=== PATIENT | male | born 1960 | race Caucasian/White ===

== ENCOUNTER 2018-02-28 02:17 | Emergency (ER) | payer OTHER ==
[2018-02-28] MEDS ORDERED: IBUPROFEN 400 MG TAB ONE (02:43)
[2018-02-28] MEDS ORDERED: NA CHLORIDE 0.9% 1,000 ML ONE (03:12)
[2018-02-28] MEDS ORDERED: DEXAMETHASONE 10 MG/ML VIAL ONE (03:12)
[2018-02-28 03:41] LABS: Potassium 3.3 mEq/L (3.6-5.0)
[2018-02-28 03:44] LABS: Albumin 3.8 g/dL (3.2-5.5); Bilirubin Total 0.5 mg/dL (0.3-1.2); Protein, Total 7.5 g/dL (6.0-8.3)
--- NOTE | 2018-02-28 04:21 | EDPHYS ---
Physician Documentation [facility] Name: Moris Neal Age: 57 yrs Sex: Male : 1960 Arrival Date: 02/28/2018 Time: 02:21 Bed 6 Private MD: Malinda Peterson C ED Physician Zack Becerra HPI: 02/28 04:22 This 57 yrs old Male presents to ER via Ambulatory with complaints of Arm ps1 Pain. 04:22 The complaints affect the left arm. Pain onset was 2 days ago. States that it is ps1 non-traumatic. Hx of chronic pain. Sees for back pain and post surgical pain. Hx of drug abuse on oxycontin and fentanyl but has been clean for a year. additionally states that he has pain in his armpit and worse with deep breathing. No remitting factors. . Historical: - Allergies: 02:37 No Known Allergies; bb - Home Meds: 02:37 Depakote Oral [Active]; Seroquel Oral [Active]; Ambien Oral [Active]; unknown psych med bb [Active]; - PMHx: 02:37 Depression; Hypertension; bb - PSHx: 02:37 back surgery; Cholecystectomy; bb - Immunization history:: Adult Immunizations up to date. - Social history:: Smoking status: Patient uses tobacco products, smokes one pack cigarettes per day. Patient uses alcohol, but reports only rare drinking. Patient/guardian denies using street drugs. - Ebola Screening: : No symptoms or risks identified at this time. ROS: 04:22 Constitutional: Negative for fever, chills, and weight loss, Eyes: Negative for injury, ps1 pain, redness, and discharge, ENT: Negative for injury, pain, and discharge, Cardiovascular: Negative for chest pain, palpitations, and edema, Respiratory: Negative for shortness of breath, cough, wheezing, and pleuritic chest pain, Abdomen/GI: Negative for abdominal pain, nausea, vomiting, diarrhea, and constipation, Back: Negative for injury and pain. 04:22 MS/extremity: Positive for pain, of the left arm. Exam: 04:22 Constitutional: This is a well developed, well nourished patient who is awake, alert, ps1 and in no acute distress. Head/Face: Normocephalic, atraumatic. Eyes: Pupils equal round and reactive to light, extra-ocular motions intact. Lids and lashes normal. Conjunctiva and sclera are non-icteric and not injected. Chest/axilla: Normal chest wall appearance and motion. Nontender with no deformity. No lesions are appreciated. Cardiovascular: Regular rate and rhythm. No gallops, murmurs, or rubs. Normal PMI, no JVD. No pulse deficits. Respiratory: Lungs have equal breath sounds bilaterally, clear to auscultation and percussion. No rales, rhonchi or wheezes noted. No increased work of breathing, no retractions or nasal flaring. Abdomen/GI: Soft, non-tender, with normal bowel sounds. No distension or tympany. No guarding or rebound. No evidence of tenderness throughout. Skin: Warm, dry with normal turgor. Normal color with no rashes, no lesions, and no evidence of cellulitis. MS/ Extremity: Pulses equal, no cyanosis. Neurovascular intact. Full, normal range of motion. Neuro: Awake and alert, GCS 15, oriented to person, place, time, and situation. Cranial nerves II-XII grossly intact. Sensory grossly intact. Vital Signs: 02:37 BP 132 / 91; Pulse 115; Resp 20 S; Temp 99.1; Pulse Ox 96% on R/A; Weight 113.4 kg (R); bb Height 5 ft. 10 in. (177.80 cm) (R); Pain 7/10; 04:10 BP 119 / 75; Pulse 85; Resp 18; Pulse Ox 96% on R/A; ea 06:56 BP 120 / 68; Pulse 78; Resp 18; Pulse Ox 99% ; Pain 3/10; ea 02:37 Body Mass Index 35.87 (113.40 kg, 177.80 cm) bb MDM: 02:38 Patient medically screened. ps1 06:02 Data reviewed: vital signs, nurses notes, lab test result(s), EKG. ps1 02/28 03:08 Order name: CBC with Diff; Complete Time: 05:52 ps1 02/28 03:08 Order name: CMP; Complete Time: 03:49 ps1 02/28 02:35 Order name: CXR XRAY ps1 02/28 03:08 Order name: D-Dimer; Complete Time: 04:02 ps1 02/28 03:08 Order name: Troponin (emerg Dept Use Only); Complete Time: 03:52 ps1 02/28 04:26 Order name: EKG - Nurse/Tech; Complete Time: 05:31 ps1 EC:28 Rate is 82 beats/min. Rhythm is regular. QRS [place] is Normal. HI interval is normal. QRS ps1 interval is prolonged. QT interval is normal. No Q waves. T waves are Normal. No ST changes noted. Clinical impression: nsr with IVCD. . Interpreted by me. Administered Medications: 02:42 Drug: Motrin 800 mg Route: PO; ea 06:58 Follow up: Response: No adverse reaction ea 03:18 Drug: Decadron - Dexamethasone 10 mg Route: IVP; Site: right antecubital; mg2 04:00 Follow up: Response: No adverse reaction; Pain is decreased ea 03:19 Drug: NS 0.9% 1000 ml Route: IV; Rate: 1 bolus; Site: right antecubital; mg2 06:57 Follow up: Response: No adverse reaction; IV Status: Completed infusion ea Disposition: 02/28/18 04:21 Discharged to Home. Impression: Pain in left shoulder. - Condition is Stable. - Discharge Instructions: Arthralgia. - Prescriptions for Medrol (Robbie) 4 mg Oral Tablets, Dose Pack - take 1 tablet by ORAL route as directed - follow package instructions; 1 packet. - Medication Reconciliation Form, Thank You Letter, Antibiotic Education, Prescription Opioid Use form. - Follow up: Malinda Peterson MD; When: As needed; Reason: Recheck today's complaints, Continuance of care, Re-evaluation by your physician. Follow up: Emergency Department; When: As needed; Reason: Fever > 102 F, Trouble breathing, Worsening of condition. - Problem is an ongoing problem. - Symptoms have improved. Signatures: Dispatcher [employer] EDMS Joycelyn Kuhn RN RN bb Hannah White RN RN ea Singer, Phillip, MD MD ps1 Chirag Sanches RN RN mg2 Corrections: (The following items were deleted from the chart) 06:58 04:21 02/28/2018 04:21 Discharged to Home. Impression: Pain in left shoulder. Condition ea is Stable. Forms are Medication Reconciliation Form, Thank You Letter, Antibiotic Education, Prescription Opioid Use. Follow up: Malinda Peterson; When: As needed; Reason: Recheck today's complaints, Continuance of care, Re-evaluation by your physician. Follow up: Emergency Department; When: As needed; Reason: Fever > 102 F, Trouble breathing, Worsening of condition. Problem is an ongoing problem. Symptoms have improved. ps1
--- NOTE | 2018-02-28 04:21 | ER ---
Nurse's Notes [facility] Name: Moris Neal Age: 57 yrs Sex: Male : 1960 Arrival Date: 02/28/2018 Time: 02:21 Bed 6 Private MD: Malinda Peterson C Diagnosis: Pain in left shoulder Presentation: 02/28 02:34 Presenting complaint: Patient states: he is having pain in his left arm axillary area bb also back pain pt states he thinks he has pleurisy and feels like he could "squeeze under his arm and fluid would come out". Transition of care: patient was not received from another setting of care. Onset of symptoms was February 26, 2018. Risk Assessment: Do you want to hurt yourself or someone else? Patient reports no desire to harm self or others. Initial Sepsis Screen: Does the patient meet any 2 criteria? No. Patient's initial sepsis screen is negative. Does the patient have a suspected source of infection? No. Patient's initial sepsis screen is negative. Care prior to arrival: None. 02:34 Method Of Arrival: Ambulatory bb 02:34 Acuity: BIN 3 bb Historical: - Allergies: 02:37 No Known Allergies; bb - Home Meds: 02:37 Depakote Oral [Active]; Seroquel Oral [Active]; Ambien Oral [Active]; unknown psych med bb [Active]; - PMHx: 02:37 Depression; Hypertension; bb - PSHx: 02:37 back surgery; Cholecystectomy; bb - Immunization history:: Adult Immunizations up to date. - Social history:: Smoking status: Patient uses tobacco products, smokes one pack cigarettes per day. Patient uses alcohol, but reports only rare drinking. Patient/guardian denies using street drugs. - Ebola Screening: : No symptoms or risks identified at this time. Screenin:54 Abuse screen: Denies threats or abuse. Nutritional screening: No deficits noted. ea Tuberculosis screening: No symptoms or risk factors identified. Fall Risk None identified. Assessment: 02:52 General: Appears in no apparent distress. Behavior is calm, cooperative, appropriate ea for age. Pain: Complains of pain in left arm Pain currently is 9 out of 10 on a pain scale. Quality of pain is described as aching. Neuro: Level of Consciousness is awake, alert, obeys commands, Oriented to person, place, time, situation. Cardiovascular: Patient's skin is warm and dry. Respiratory: Airway is patent Respiratory effort is even, unlabored, Respiratory pattern is regular, symmetrical. GI: No signs and/or symptoms were reported involving the gastrointestinal system. : No signs and/or symptoms were reported regarding the genitourinary system. EENT: No signs and/or symptoms were reported regarding the EENT system. Derm: Skin is pink, warm \\T\\ dry. Musculoskeletal: Reports pain in left arm. 03:30 Reassessment: Patient and/or family updated on plan of care and expected duration. Pain ea level reassessed. Patient is alert, oriented x 3, equal unlabored respirations, skin warm/dry/pink. 04:03 Reassessment: Patient and/or family updated on plan of care and expected duration. Pain ea level reassessed. Patient is alert, oriented x 3, equal unlabored respirations, skin warm/dry/pink. 06:53 Reassessment: Patient and/or family updated on plan of care and expected duration. Pain ea level reassessed. Patient is alert, oriented x 3, equal unlabored respirations, skin warm/dry/pink. Discharge instructions given to patient, verbalized the understanding of instruction. Vital Signs: 02:37 BP 132 / 91; Pulse 115; Resp 20 S; Temp 99.1; Pulse Ox 96% on R/A; Weight 113.4 kg (R); bb Height 5 ft. 10 in. (177.80 cm) (R); Pain 7/10; 04:10 BP 119 / 75; Pulse 85; Resp 18; Pulse Ox 96% on R/A; ea 06:56 BP 120 / 68; Pulse 78; Resp 18; Pulse Ox 99% ; Pain 3/10; ea 02:37 Body Mass Index 35.87 (113.40 kg, 177.80 cm) bb ED Course: 02:21 Patient arrived in ED. es 02:21 Malinda Peterson MD is Private Physician. es 02:24 Hannah White, LINCOLN is Primary Nurse. ea 02:26 Zack Becerra MD is Attending Physician. ps1 02:36 Triage completed. bb 02:37 Arm band placed on Patient placed in an exam room, on a stretcher, on pulse oximetry. bb 02:52 X-ray completed. Portable x-ray completed in exam room. Patient tolerated procedure kw well. 02:52 Patient has correct armband on for positive identification. Bed in low position. Call ea light in reach. 02:54 CXR XRAY In Process Unspecified. EDMS 03:19 Inserted saline lock: 22 gauge in right antecubital area, using aseptic technique. mg2 Blood collected. by LINCOLN Young. 04:20 Malinda Peterson MD is Referral Physician. ps1 05:31 EKG done, by ED staff. cc 06:54 No provider procedures requiring assistance completed. IV discontinued, intact, ea bleeding controlled, No redness/swelling at site. Pressure dressing applied. Administered Medications: 02:42 Drug: Motrin 800 mg Route: PO; ea 06:58 Follow up: Response: No adverse reaction ea 03:18 Drug: Decadron - Dexamethasone 10 mg Route: IVP; Site: right antecubital; mg2 04:00 Follow up: Response: No adverse reaction; Pain is decreased ea 03:19 Drug: NS 0.9% 1000 ml Route: IV; Rate: 1 bolus; Site: right antecubital; mg2 06:57 Follow up: Response: No adverse reaction; IV Status: Completed infusion ea Outcome: 04:21 Discharge ordered by . ps1 06:54 Discharged to home ambulatory. ea 06:54 Condition: good 06:54 Discharge instructions given to patient, Instructed on discharge instructions, follow up and referral plans. medication usage, Demonstrated understanding of instructions, follow-up care, medications. 06:58 Patient left the ED. ea Signatures: Dispatcher [employer] EDCO Leda Brown Brenda, RN RN bb Whitley, Kimberlee kw Christian, Chelsea Hannah White RN RN ea Singer, Phillip, MD MD ps1 Chirag Sanches RN RN mg2 Corrections: (The following items were deleted from the chart) 02:41 02:37 BP 132 / 91; Pulse 120bpm; Resp 20bpm; Spontaneous; Pulse Ox 96% RA; Temp 99.1F; bb 113.4 kg Reported; Height 5 ft. 10 in. Reported; BMI: 35.8; Pain 7/10; bb
[2018-02-28 04:24] LABS: Absolute Monocytes 1.4 K/uL (0.1-1.3); Absolute Neutrophil 9.7 K/uL (1.8-8.0); Basophils % 0.8 % (0-1.3); Eosinophils % 0.3 % (0-4.4); Hematocrit 45.6 % (39.6-49.0); Lymphocytes % 15.2 % (15.3-44.8); MCH 30.2 pg (27.0-35.0); MCV 87.4 fL (80-100); MPV 8.2 fL (7.6-11.3); Monocytes % 10.5 % (3.3-12.3); RBC Red Blood Cell Count 5.21 M/uL (4.33-5.43)
--- NOTE | 2018-02-28 07:36 | EKG ---
Test Date: 2018-02-28 Test Time: 05:28:47 Pharmacy Intake Technician: LAUREANO MEASUREMENT RESULTS: Intervals: Rate: 82 AR: 218 QRSD: 122 QT: 378 QTc: 441 [place]: P: 38 AR: 218 QRS: -11 T: 32 INTERPRETIVE STATEMENTS: Sinus rhythm with 1st degree AV block Borderline ECG Compared to ECG 11/10/2017 22:11:44 First degree AV block now present Electronically Signed On 02-28-18 07:35:35 CDT by Dario Montero
--- NOTE | 2018-02-28 07:59 | RAD REPORT ---
EXAM DESCRIPTION: Viri Single View02/28/2018 2:53 am CLINICAL HISTORY: Chest pain COMPARISON: October 2017 FINDINGS: The lungs appear clear of acute infiltrate. The heart is normal size IMPRESSION: No acute abnormalities displayed
== END 2018-02-28 06:58 | disposition home or self-care (01) ==
LOC: ER 02:17
DX: M25.512 Pain in left shoulder (principal); F32.9 Major depressive disorder, single episode, unspecified; I10 Essential (primary) hypertension; F17.210 Nicotine dependence, cigarettes, uncomplicated
CPT/HCPCS: 36415; 71045; 80053; 84484; 85025; 85379; 93005; 96361; 96374; 99284; J1100; J7030

== ENCOUNTER 2018-05-10 04:38 | Emergency (ER) | payer OTHER ==
[2018-05-10] MEDS ORDERED: TETRACAINE HCL 0.5% 2ML OPTH ONE (04:53)
[2018-05-10] MEDS ORDERED: FLUORESCEIN SODIUM 0.6 MG/WRAP ONE (04:53)
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
[2018-05-10] MEDS ORDERED: TETANUS & DIPHTHERIA TOX,ADULT 0.5 ML VIAL ONE (05:10)
[2018-05-10] MEDS ORDERED: NEO/BAC/POLY/HC OPTH OINT ONE (05:19)
[2018-05-10] MEDS ORDERED: NEO/POLY/DEX OPTH 3.5 GM TUBE ONE (05:22)
== END 2018-05-10 05:33 | disposition home or self-care (01) ==
LOC: ER 04:38
DX: S05.32XA Ocular laceration without prolapse or loss of intraocular tissue, left eye, initial encounter (principal); Y08.89XA Assault by other specified means, initial encounter; Y93.9 Activity, unspecified; Y92.9 Unspecified place or not applicable; Z23 Encounter for immunization; I10 Essential (primary) hypertension; F32.9 Major depressive disorder, single episode, unspecified; F17.210 Nicotine dependence, cigarettes, uncomplicated
CPT/HCPCS: 90714; 99284

== ENCOUNTER 2019-06-19 13:28 | Emergency (ER) | payer OTHER ==
--- NOTE | 2019-06-19 14:38 | RAD REPORT ---
EXAM DESCRIPTION: CT - Stone Protocol - 06/19/2019 2:27 pm CLINICAL HISTORY: Flank pain. low back pain COMPARISON: Abdomen Pelvis W Contrast dated 11/17/2016 TECHNIQUE: Axial images were obtained without oral or IV contrast. Lack of contrast limits solid org an and vascular assessment. The [id number] spans the entirety of the system partially obscuring uppermost abdomen and lung bases. Coronal reformatted images were obtained and reviewed. All CT scans are performed using dose optimization technique as appropriate and may include automated exposure control or mA/KV adjustment according to patient size. FINDINGS: Linear atelectasis is present in the left lung base with a mildly elevated left hemidiaphr agm. Imaged portions of the liver and spleen show no suspicious findings on non-contrast imaging.Mild pneu mobilia. The pancreas and adrenal glands are normal. No pathologic lymphadenopathy in the abdomen or pelvis. 11 mm stone is present in the inferior calyx of the left kidney with a few smaller adjacent caliceal calculi present. No stone is present in the ureter or bladder. No right-sided urinary tract stones se en. No bowel obstruction, free air, free fluid or abscess. Normal appendix noted.Moderate stool is presen t in the colon. No significant bony abnormality. IMPRESSION: Left nephrolithiasis is present without hydronephrosis.
[2019-06-19] MEDS ORDERED: FENTANYL CITR 100 MCG/2 ML ONE (15:00)
[2019-06-19 15:30] LABS: ALT/SGPT 11 U/L (12-78); AST/SGOT 5 U/L (15-37); Albumin 3.3 g/dL (3.4-5.0); Alkaline Phosphatase 54 U/L (45-117); BUN Blood Urea Nitrogen 17 mg/dL (7-18); Bicarbonate 28 mmol/L (21-32); Bilirubin Direct < 0.1 mg/dL (0-0.2); Bilirubin Total 0.2 mg/dL (0.2-1.0); Glucose Level 163 mg/dL (74-106); Lipase 83 U/L (73-393); Potassium 4.1 mmol/L (3.5-5.1); Protein, Total 7.2 g/dL (6.4-8.2); Sodium Level 139 mmol/L (136-145)
[2019-06-19 15:33] LABS: Basophils % 1.1 % (0-1.3); Hematocrit 46.9 % (39.6-49.0); MPV 8.8 fL (7.6-11.3)
[2019-06-19] MEDS ORDERED: NA CHLORIDE 0.9% 100 ML IV ONE (17:05)
[2019-06-19] MEDS ORDERED: HYDROCODONE/APAP 10/325 TAB ONE (17:05)
[2019-06-19] MEDS ORDERED: CEFTRIAXONE/SWI 1gm 1 GM/10 ML SYR ONE (17:05)
--- NOTE | 2019-06-19 17:16 | ER ---
Nurse's Notes [facility] Name: Moris Neal Age: 58 yrs Sex: Male : 1960 Arrival Date: 06/19/2019 Time: 13:32 Bed 18 Private MD: Malinda Peterson C Diagnosis: Low back pain;Urinary tract infection, site not specified;Calculus of kidney-left Presentation: 06/19 13:35 Presenting complaint: Patient states: my back is very unhappy, i have a terrible back, tw2 compression in discs, something is tapping into my lumbar area, it maybe my kidney stone bothering me as well. Transition of care: patient was not received from another setting of care. Onset of symptoms was June 19, 2019. Risk Assessment: Do you want to hurt yourself or someone else? Patient reports no desire to harm self or others. Initial Sepsis Screen: Does the patient meet any 2 criteria? No. Patient's initial sepsis screen is negative. Does the patient have a suspected source of infection? No. Patient's initial sepsis screen is negative. Care prior to arrival: None. 13:35 Method Of Arrival: Ambulatory tw2 13:35 Acuity: BIN 3 tw2 Triage Assessment: 13:38 General: Appears uncomfortable, Behavior is calm, cooperative, appropriate for age, tw2 Smells of cigarette smoke. Pain: Complains of pain in lumbar area. Musculoskeletal: Range of motion: intact in all extremities. Historical: - Allergies: 13:37 No Known Allergies; tw2 - Home Meds: 13:37 Seroquel Oral [Active]; Depakote Oral [Active]; tw2 - PMHx: 13:37 Depression; Hypertension; tw2 - PSHx: 13:37 back surgery; Cholecystectomy; tw2 - Immunization history:: Adult Immunizations up to date. - Social history:: Smoking status: Patient uses tobacco products, smokes two packs cigarettes per day. - Ebola Screening: : Patient denies travel to an Ebola-affected area in the 21 days before illness onset. Screenin:48 Abuse screen: Denies threats or abuse. Denies injuries from another. Nutritional bp screening: No deficits noted. Tuberculosis screening: No symptoms or risk factors identified. Fall Risk None identified. Assessment: 13:40 General: SEE TRIAGE NOTE. Neuro: No deficits noted. bp 15:08 Reassessment: LAB AND RAD RESULTS PENDING. bp 16:30 Reassessment: UOP OBTAINED, RESULTS PENDING. bp 17:42 Reassessment: PT D/C HOME AMBULATORY, DX WITH UTI. bp Vital Signs: 13:37 BP 146 / 85; Pulse 104; Resp 19; Temp 98.4(TE); Pulse Ox 96% on R/A; Weight 117.93 kg tw2 (R); Height 5 ft. 10 in. (177.80 cm); Pain 10/10; 15:07 BP 133 / 106; Pulse 94; Resp 20; Pulse Ox 94% ; bp 16:14 BP 132 / 83; Pulse 93; Resp 17; Pulse Ox 95% ; bp 13:37 Body Mass Index 37.31 (117.93 kg, 177.80 cm) tw2 13:37 "when it grabs its a 10, now sitting here 0" tw2 ED Course: 13:32 Patient arrived in ED. dl4 13:32 Malinda Peterson MD is Private Physician. dl4 13:36 Triage completed. tw2 13:37 Arm band placed on. tw2 13:46 Edson Ibarra, [place] is Primary Nurse. bp 13:47 Moe Duarte PA is PHCP. cp 13:47 Alexis Sewell MD is Attending Physician. cp 13:48 Patient has correct armband on for positive identification. Bed in low position. Call bp light in reach. Side rails up X2. Adult w/ patient. 14:28 CT Stone Protocol: low back pain In Process Unspecified. EDMS 14:55 Missed attempt(s): 22 gauge in right forearm. Bleeding controlled, band aid applied, dh3 catheter tip intact. 15:01 Initial lab(s) drawn, by co, sent to lab. Inserted saline lock: 20 gauge in left dh3 antecubital area, using aseptic technique. Blood collected. 17:45 No provider procedures requiring assistance completed. IV discontinued, intact, bp bleeding controlled, No redness/swelling at site. Pressure dressing applied. Administered Medications: 14:50 Drug: fentaNYL (PF) 25 mcg Route: IVP; Site: left antecubital; bp 16:43 Follow up: Response: Pain is decreased bp 17:10 Drug: Rocephin 1 grams Route: IV; Rate: calculated rate; Site: left antecubital; bp 17:46 Follow up: IV Status: Completed infusion; IV Intake: 50ml bp 17:10 Drug: Hydrocodone-Acetaminophen (10 mg-500 mg) 1 tabs Route: PO; bp 17:46 Follow up: Response: No adverse reaction bp Intake: 17:46 IV: 50ml; Total: 50ml. bp Outcome: 17:15 Discharge ordered by MD. cp 17:45 Discharged to home ambulatory, with family. bp 17:45 Condition: stable 17:45 Discharge instructions given to patient, Instructed on discharge instructions, follow up and referral plans. medication usage, Demonstrated understanding of instructions, follow-up care, medications, Prescriptions given X 4. 17:46 Patient left the ED. bp Addendum: 06/23/2019 07:29 Addendum: Culture Results: Positive urine culture. No further action required. Bacteria s s sensitive to prescribed antibiotic. Signatures: Dispatcher [employer] EDMS Makayla Berg RN RN ss Moe Duarte PA PA cp Wise, Tara RN RN 2 Celeste Denson 3 Edson Ibarra RN RN Howie Varghese dl4
--- NOTE | 2019-06-19 17:17 | EDPHYS ---
Physician Documentation [facility] Name: Moris Neal Age: 58 yrs Sex: Male : 1960 Arrival Date: 06/19/2019 Time: 13:32 Bed 18 Private MD: Malinda Peterson C ED Physician Alexis Sewell HPI: 06/19 14:20 This 58 yrs old Male presents to ER via Ambulatory with complaints of Back cp Pain. 14:20 The patient presents with pain that is chronic, worse over last several days. The cp symptoms are located in the lumbar area and left mid back. The pain does not radiate. Associated signs and symptoms: Pertinent negatives: abdominal pain, chest pain, constipation, dysuria, fever, hematuria, incontinence, numbness, urinary retention, vomiting, weakness. The problem was sustained from unknown cause. Modifying factors: the patient symptoms are aggravated by movement, walking. Severity of symptoms: in the emergency department the symptoms are unchanged, despite home interventions. Historical: - Allergies: 13:37 No Known Allergies; tw2 - Home Meds: 13:37 Seroquel Oral [Active]; Depakote Oral [Active]; tw2 - PMHx: 13:37 Depression; Hypertension; tw2 - PSHx: 13:37 back surgery; Cholecystectomy; tw2 - Immunization history:: Adult Immunizations up to date. - Social history:: Smoking status: Patient uses tobacco products, smokes two packs cigarettes per day. - Ebola Screening: : Patient denies travel to an Ebola-affected area in the 21 days before illness onset. ROS: 14:30 Constitutional: Negative for body aches, chills, fever, poor PO intake. cp 14:30 Eyes: Negative for injury, pain, redness, and discharge. cp 14:30 ENT: Negative for drainage from ear(s), ear pain, sore throat, difficulty swallowing, difficulty handling secretions. 14:30 Neck: Negative for pain with movement, pain at rest, stiffness. 14:30 Cardiovascular: Negative for chest pain, edema, palpitations. 14:30 Respiratory: Negative for cough, shortness of breath, wheezing. 14:30 Abdomen/GI: Negative for abdominal pain, nausea, vomiting, and diarrhea, constipation, black/tarry stool, rectal bleeding, bowel incontinence. 14:30 Back: Positive for pain at rest, pain with movement, of the lumbar area and left mid back. 14:30 : Negative for urinary symptoms, bladder incontinence, testicular pain 14:30 Skin: Negative for rash. 14:30 Neuro: Negative for altered mental status, headache, numbness, weakness. 14:30 All other systems are negative. Exam: 14:35 Constitutional: The patient appears in no acute distress, alert, awake, cp non-diaphoretic, non-toxic, well developed, well nourished, obese, uncomfortable. 14:35 Head/Face: Normocephalic, atraumatic. cp 14:35 Eyes: Periorbital structures: appear normal, Conjunctiva: normal, no exudate, no injection, Sclera: no appreciated abnormality, Lids and lashes: appear normal, bilaterally. 14:35 ENT: External ear(s): are unremarkable, Nose: is normal, Mouth: is normal, Posterior pharynx: is normal, airway is patent, no erythema, no exudate. 14:35 Neck: ROM/movement: is normal, is supple, without pain, no range of motions limitations, no nuchal rigidity. 14:35 Chest/axilla: Inspection: normal, Palpation: is normal, no crepitus, no tenderness. 14:35 Cardiovascular: Rate: tachycardic, Rhythm: regular, Edema: is not appreciated, JVD: is not appreciated. 14:35 Respiratory: the patient does not display signs of respiratory distress, Respirations: normal, no use of accessory muscles, no retractions, no splinting, no tachypnea, labored breathing, is not present, Breath sounds: are clear throughout, no decreased breath sounds, no stridor, no wheezing. 14:35 Abdomen/GI: Inspection: abdomen appears normal, Bowel sounds: active, all quadrants, Palpation: abdomen is soft and non-tender, in all quadrants. 14:35 Back: pain, that is moderate, of the lumbar area and left mid back, ROM is painful, with all movement, Straight leg raises: of both lower extremities does not illicit pain. 14:35 Skin: no rash present. 14:35 Neuro: Orientation: to person, place \\T\\ time. Mentation: is normal, Motor: moves all fours, strength is normal, Sensation: no obvious gross deficits, Gait: is steady, Deep tendon reflexes are 2+ (normal) in the right patellar, right Achilles, left patellar and left Achilles. Vital Signs: 13:37 BP 146 / 85; Pulse 104; Resp 19; Temp 98.4(TE); Pulse Ox 96% on R/A; Weight 117.93 kg tw2 (R); Height 5 ft. 10 in. (177.80 cm); Pain 10/10; 15:07 BP 133 / 106; Pulse 94; Resp 20; Pulse Ox 94% ; bp 16:14 BP 132 / 83; Pulse 93; Resp 17; Pulse Ox 95% ; bp 13:37 Body Mass Index 37.31 (117.93 kg, 177.80 cm) tw2 13:37 "when it grabs its a 10, now sitting here 0" tw2 MDM: 13:48 Patient medically screened. cp 15:00 Differential diagnosis: Cholelithiasis chronic back pain, Fracture Osteomyelitis cp ruptured disc, spinal injury, Ureterolithiasis vertebral fracture. 17:14 Data reviewed: vital signs, nurses notes, lab test result(s), radiologic studies, CT cp scan. 17:14 Counseling: I had a detailed discussion with the patient and/or guardian regarding: the cp historical points, exam findings, and any diagnostic results supporting the discharge/admit diagnosis, lab results, radiology results, to return to the emergency department if symptoms worsen or persist or if there are any questions or concerns that arise at home. Response to treatment: the patient's symptoms have markedly improved after treatment, and as a result, I will discharge patient. ED course: VSS. Pain improved with meds. CT negative for acute findings. Will discharge to home for continued monitoring. 06/19 14:14 Order name: Basic Metabolic Panel; Complete Time: 15:53 cp 06/19 15:53 Interpretation: Normal except: GLUC 163; GFR 60. cp 06/19 14:14 Order name: CBC with Diff; Complete Time: 15:53 cp 06/19 15:53 Interpretation: Normal except: MCV 93.8. cp 06/19 14:14 Order name: Creatinine for Radiology; Complete Time: 15:53 cp 06/19 14:14 Order name: Hepatic Function; Complete Time: 15:53 cp 06/19 15:53 Interpretation: Normal except: AST 5; ALT 11; ALB 3.3; GLOB 3.9; A/G 0.8. cp 06/19 14:14 Order name: Lipase; Complete Time: 15:53 cp 06/19 14:14 Order name: Urine Microscopic Only cp 06/19 16:54 Order name: Urine Culture 06/19 17:34 Order name: Urine Dipstick--Ancillary (enter results) sp 06/19 14:15 Order name: CT Stone Protocol: low back pain; Complete Time: 15:11 cp 06/19 14:14 Order name: IV Saline Lock; Complete Time: 15:05 06/19 14:14 Order name: Labs collected and sent; Complete Time: 15:05 cp 06/19 14:14 Order name: Urine Dipstick-Ancillary (obtain specimen); Complete Time: 16:43 cp Administered Medications: 14:50 Drug: fentaNYL (PF) 25 mcg Route: IVP; Site: left antecubital; bp 16:43 Follow up: Response: Pain is decreased bp 17:10 Drug: Rocephin 1 grams Route: IV; Rate: calculated rate; Site: left antecubital; bp 17:46 Follow up: IV Status: Completed infusion; IV Intake: 50ml bp 17:10 Drug: Hydrocodone-Acetaminophen (10 mg-500 mg) 1 tabs Route: PO; bp 17:46 Follow up: Response: No adverse reaction bp Disposition: 06/19/19 17:15 Discharged to Home. Impression: Low back pain, Urinary tract infection, site not specified, Calculus of kidney - left. - Condition is Stable. - Discharge Instructions: Back Pain, Adult, Kidney Stones, Urinary Tract Infection, Adult, Back Exercises. - Prescriptions for Cipro 500 mg Oral Tablet - take 1 tablet by ORAL route every 12 hours for 10 days; 20 tablet. Cyclobenzaprine 10 mg Oral Tablet - take 1 tablet by ORAL route every 8 hours As needed no driving while taking medication; 20 tablet. Tylenol- Codeine #3 300-30 mg Oral Tablet - take 2 tablets by ORAL route every 8 hours As needed; 20 tablet. Ibuprofen 800 mg Oral Tablet - take 1 tablet by ORAL route every 8 hours As needed take with food; 30 tablet. - Medication Reconciliation Form, Thank You Letter, Antibiotic Education, Prescription Opioid Use form. - Follow up: Private Physician; When: 2 - 3 days; Reason: Recheck today's complaints. - Problem is new. - Symptoms have improved. Addendum: 06/21/2019 16:02 Co-signature as Attending Physician, Alexis Sewell MD I agree with the assessment and k dr plan of care. Signatures: Dispatcher [employer] EDDC Alexis Sewell MD MD [facility] Moe Duarte PA PA cp Naina James, RN RN tw2 Edson Ibarra RN RN bp Corrections: (The following items were deleted from the chart) 06/19 17:17 17:15 06/19/2019 17:15 Discharged to Home. Impression: Low back pain; Urinary tract cp infection, site not specified; Calculus of kidney. Condition is Stable. Forms are Medication Reconciliation Form, Thank You Letter, Antibiotic Education, Prescription Opioid Use. Follow up: Private Physician; When: 2 - 3 days; Reason: Recheck today's complaints. Problem is new. Symptoms have improved. cp 17:46 17:17 06/19/2019 17:15 Discharged to Home. Impression: Low back pain; Urinary tract bp infection, site not specified; Calculus of kidney - left. Condition is Stable. Discharge Instructions: Back Pain, Adult, Kidney Stones, Urinary Tract Infection, Adult, Back Exercises. Prescriptions for Cipro 500 mg Oral Tablet - take 1 tablet by ORAL route every 12 hours for 10 days; 20 tablet, Cyclobenzaprine 10 mg Oral Tablet - take 1 tablet by ORAL route every 8 hours As needed no driving while taking medication; 20 tablet. and Forms are Medication Reconciliation Form, Thank You Letter, Antibiotic Education, Prescription Opioid Use. Follow up: Private Physician; When: 2 - 3 days; Reason: Recheck today's complaints. Problem is new. Symptoms have improved. cp
[2019-06-19 18:21] LABS: Urine Bacteria <20 /HPF (NONE SEEN); Urine Culture Reflex Order NOT NEEDED
[2019-06-19 18:49] VITALS: TEMP 98.4
[2019-06-19 18:54] VITALS: BP 132/83; O2SAT 95
[2019-06-19 20:30] LABS: Urine Blood 2+ (NEG); Urine Glucose NEGATIVE (NEG); Urine Protein NEGATIVE (NEG)
== END 2019-06-19 17:46 | disposition home or self-care (01) ==
LOC: ER 13:28
DX: N39.0 Urinary tract infection, site not specified (principal); N20.0 Calculus of kidney; I10 Essential (primary) hypertension; F32.9 Major depressive disorder, single episode, unspecified; F17.210 Nicotine dependence, cigarettes, uncomplicated
CPT/HCPCS: 96365; 87088; 85025; 87086; 80048; 36415; 80076; 87077; 87186; 83690; 76377; 74176; 96375; 99284; J3010; J0696; 81003; 81015

== ENCOUNTER 2019-06-21 07:26 | Emergency (ER) | payer OTHER ==
[2019-06-21] MEDS ORDERED: HYDROCODONE/APAP 10/325 TAB ONE (07:54)
--- NOTE | 2019-06-21 08:51 | RAD REPORT ---
EXAM DESCRIPTION: RAD - Lumbar Spine 3 Views - 06/21/2019 8:24 am CLINICAL HISTORY: Back pain FINDINGS: The alignment of the lumbar spine is satisfactory. No fracture or dislocation is seen. Osteoporosis. Mild spondylosis lower lumbar spine. Osteoarthritis involves the facet joints of lower lumbar spine Left renal calculus seen on June 19, 2019 cat scan is again demonstrated
--- NOTE | 2019-06-21 08:53 | RAD REPORT ---
EXAM DESCRIPTION: RAD - Thoracic Spine Ap/Lat - 06/21/2019 8:24 am CLINICAL HISTORY: Back pain FINDINGS: Kyphosis involves the thoracic spine. Osteoporosis. Bridging osteophytes scan several lower thoracic vertebral bodies which may indicate diffuse idiopath ic skeletal hyperostosis No fracture or dislocation Scoliosis involves the thoracic spine
--- NOTE | 2019-06-21 08:58 | ER ---
Nurse's Notes [facility] Name: Moris Neal Age: 58 yrs Sex: Male : 1960 Arrival Date: 06/21/2019 Time: 07:28 Bed 20 Private MD: Malinda Peterson C Diagnosis: Low back pain Presentation: 06/21 07:45 Presenting complaint: Patient states: Patient believes that he has spontaneously ss fractured his L3 vertebrae during his sleep 4 days ago. Patient reports he has a history of this before. Transition of care: patient was not received from another setting of care. Transition of care: patient was not received from another setting of care. Onset of symptoms is unknown. Risk Assessment: Do you want to hurt yourself or someone else? Patient reports no desire to harm self or others. Initial Sepsis Screen: Does the patient have a suspected source of infection? Yes: Other: Patient states, "UTI". Initial Sepsis Screen: Does the patient meet any 2 criteria? HR > 90 bpm. Care prior to arrival: None. 07:45 Acuity: BIN 3 ss 07:45 Method Of Arrival: Ambulatory ss Historical: - Allergies: 07:47 No Known Allergies; ss - PMHx: 07:47 Depression; Hypertension; spontaneous fractures of vertebrae; ss - Immunization history:: Adult Immunizations unknown. - Social history:: Smoking status: Patient uses tobacco products, smokes two packs cigarettes per day. - Family history:: not pertinent. - Ebola Screening: : Patient denies exposure to infectious person Patient denies travel to an Ebola-affected area in the 21 days before illness onset. - Hospitalizations: : No recent hospitalization is reported. Screenin:49 Abuse screen: Denies threats or abuse. Denies injuries from another. Nutritional hb screening: No deficits noted. Tuberculosis screening: No symptoms or risk factors identified. Fall Risk None identified. Assessment: 07:49 General: Appears in no apparent distress. Behavior is calm, cooperative. Pain: Pain hb currently is 3 out of 10 on a pain scale. Neuro: Level of Consciousness is awake, alert, obeys commands, Oriented to person, place, time, situation. Cardiovascular: Patient's skin is warm and dry. Respiratory: Airway is patent Respiratory effort is even, unlabored, Respiratory pattern is regular, symmetrical. GI: No signs and/or symptoms were reported involving the gastrointestinal system. : No signs and/or symptoms were reported regarding the genitourinary system. EENT: No signs and/or symptoms were reported regarding the EENT system. Derm: Skin is intact, is healthy with good turgor. Musculoskeletal: Reports back pain 05/04. 08:45 Reassessment: Patient appears in no apparent distress at this time. Patient and/or hb family updated on plan of care and expected duration. Pain level reassessed. Patient is alert, oriented x 3, equal unlabored respirations, skin warm/dry/pink. Vital Signs: 07:44 BP 125 / 71; Pulse 105; Resp 18; Temp 99.5(O); Pulse Ox 98% on R/A; Weight 117.93 kg; ss Height 5 ft. 10 in. (177.80 cm); Pain 3/; 08:45 BP 126 / 76; Pulse 88; Resp 16; Pulse Ox 99% on R/A; hb 07:44 Body Mass Index 37.31 (117.93 kg, 177.80 cm) ED Course: 07:28 Patient arrived in ED. rg4 07:28 Malinda Peterson MD is Private Physician. rg4 07:29 Tian Cobb MD is Attending Physician. rn 07:44 Arm band placed on right wrist. ss 07:46 Triage completed. ss 07:48 Leah Morrow, [place] is Primary Nurse. hb 07:49 Patient has correct armband on for positive identification. Bed in low position. Call hb light in reach. 08:25 XRAY Thoracic Spine (Ap/lat) In Process Unspecified. EDMS 08:25 XRAY Lumbar Spine (3 Views) In Process Unspecified. EDMS 09:15 No provider procedures requiring assistance completed. Patient did not have IV access hb during this emergency room visit. Administered Medications: 08:00 Drug: [place] 10 mg-325 mg 1 tabs Route: PO; hb Outcome: 08:57 Discharge ordered by . rn 09:15 Discharged to home ambulatory, with significant other. hb 09:15 Condition: stable 09:15 Discharge instructions given to patient, Instructed on discharge instructions, follow up and referral plans. medication usage, Demonstrated understanding of instructions, follow-up care, medications. 09:16 Patient left the ED. hb Signatures: Dispatcher [employer] EDMS Tian Cobb MD MD rn Smirch, Shelby, RN RN ss Leah Morrow, RN RN Margarita Blanco 4
--- NOTE | 2019-06-21 08:58 | EDPHYS ---
Physician Documentation [facility] Name: Moris Neal Age: 58 yrs Sex: Male : 1960 Arrival Date: 06/21/2019 Time: 07:28 Bed 20 Private MD: Malinda Peterson C ED Physician Tian Cobb HPI: 06/21 07:43 This 58 yrs old Male presents to ER via Unassigned with complaints of Back rn Pain. 07:43 The patient presents with pain that is acute. The symptoms are located in the thoracic rn area and lumbar area. Onset: The symptoms/episode began/occurred 5 day(s) ago. The pain does not radiate. Modifying factors: The patient symptoms are alleviated by nothing, the patient symptoms are aggravated by any movement. Severity of symptoms: At their worst the symptoms were moderate, in the emergency department the symptoms are unchanged. The patient has experienced similar episodes in the past. Reports chronic back pain for years, but 5 days ago increased back pain, no trauma, states thinks broke vertebrae in lumbar region in his sleep, seen here, and neg ct stone, including vertebrae, diagnosed with UTI and nephrolithiasis, went to see PCP, told believes is broken vertebrae. Told needs xrays, and came back. No weakness of legs, no bowel or bladder issues, no numbness.. Historical: - Allergies: 07:47 No Known Allergies; ss - PMHx: 07:47 Depression; Hypertension; spontaneous fractures of vertebrae; ss - Immunization history:: Adult Immunizations unknown. - Social history:: Smoking status: Patient uses tobacco products, smokes two packs cigarettes per day. - Family history:: not pertinent. - Ebola Screening: : Patient denies exposure to infectious person Patient denies travel to an Ebola-affected area in the 21 days before illness onset. - Hospitalizations: : No recent hospitalization is reported. ROS: 07:43 Constitutional: Negative for fever, chills, and weight loss, Eyes: Negative for injury, rn pain, redness, and discharge, Neck: Negative for injury, pain, and swelling, Cardiovascular: Negative for chest pain, palpitations, and edema, Respiratory: Negative for shortness of breath, cough, wheezing, and pleuritic chest pain, Abdomen/GI: Negative for abdominal pain, nausea, vomiting, diarrhea, and constipation, Back: Negative for injury MS/Extremity: Negative for injury and deformity, Skin: Negative for injury, rash, and discoloration, Neuro: Negative for headache, weakness, numbness, tingling, and seizure. Exam: 07:43 Constitutional: Overweight male, no acute distress, laying inclined in bed Head/Face: rn Normocephalic, atraumatic. Back: FROM, mild tenderness upper lumbar vertebrae Skin: Warm, dry with normal turgor. Normal color with no rashes, no lesions, and no evidence of cellulitis. MS/ Extremity: Pulses equal, no cyanosis. Neurovascular intact. Full, normal range of motion. Equal circumference. Neuro: Awake and alert, GCS 15, oriented to person, place, time, and situation. Cranial nerves II-XII grossly intact. Motor strength 5/5 in all extremities. Sensory grossly intact. Cerebellar exam normal. Vital Signs: 07:44 BP 125 / 71; Pulse 105; Resp 18; Temp 99.5(O); Pulse Ox 98% on R/A; Weight 117.93 kg; ss Height 5 ft. 10 in. (177.80 cm); Pain 3/10; 08:45 BP 126 / 76; Pulse 88; Resp 16; Pulse Ox 99% on R/A; hb 07:44 Body Mass Index 37.31 (117.93 kg, 177.80 cm) ss MDM: 07:29 Patient medically screened. rn 08:56 Differential diagnosis: arthritis, chronic back pain, Fatigue Fracture spinal injury, rn sprain, Ureterolithiasis vertebral fracture. Data reviewed: vital signs, nurses notes, old medical records, radiologic studies, plain films, and as a result, I will discharge patient. Counseling: I had a detailed discussion with the patient and/or guardian regarding: the historical points, exam findings, and any diagnostic results supporting the discharge/admit diagnosis, radiology results, the need for outpatient follow up, to return to the emergency department if symptoms worsen or persist or if there are any questions or concerns that arise at home. Special discussion: I discussed with the patient/guardian in detail that at this point there is no indication for admission to the hospital. It is understood, however, that if the symptoms persist or worsen the patient needs to return immediately for re-evaluation. Based on the history and exam findings, there is no indication for further emergent testing or inpatient evaluation. I discussed with the patient/guardian the need to see the marine painter for further evaluation of the symptoms. 08:56 Test interpretation: by ED physician or midlevel provider: plain radiologic studies, rn Xray thoracic and lumbar spine neg for acute fracture. 06/21 07:43 Order name: XRAY Thoracic Spine (Ap/lat); Complete Time: 08:56 rn 06/21 07:43 Order name: XRAY Lumbar Spine (3 Views); Complete Time: 08:56 rn Administered Medications: 08:00 Drug: [place] 10 mg-325 mg 1 tabs Route: PO; hb Disposition: 06/21/19 08:57 Discharged to Home. Impression: Low back pain. - Condition is Stable. - Discharge Instructions: Back Pain, Adult, Musculoskeletal Pain. - Medication Reconciliation Form, Thank You Letter, Antibiotic Education, Prescription Opioid Use form. - Follow up: Private Physician; When: As needed; Reason: Recheck today's complaints, Re-evaluation by your physician. - Problem is an ongoing problem. - Symptoms have improved. Signatures: Dispatcher [employer] EDMS Tian Cobb MD MD rn Smirch, Shelby, RN RN Leah Morrow RN RN Corrections: (The following items were deleted from the chart) 09:16 08:57 06/21/2019 08:57 Discharged to Home. Impression: Low back pain. Condition is hb Stable. Forms are Medication Reconciliation Form, Thank You Letter, Antibiotic Education, Prescription Opioid Use. Follow up: Private Physician; When: As needed; Reason: Recheck today's complaints, Re-evaluation by your physician. Problem is an ongoing problem. Symptoms have improved. rn
[2019-06-21 09:21] VITALS: TEMP 99.5
[2019-06-21 09:22] VITALS: BP 126/76; O2SAT 99
== END 2019-06-21 09:16 | disposition home or self-care (01) ==
LOC: ER 07:26
DX: M54.5 Low back pain (principal); F17.210 Nicotine dependence, cigarettes, uncomplicated
CPT/HCPCS: 72070; 72100; 99283

== ENCOUNTER 2019-06-23 21:15 | Emergency (ER) | payer OTHER ==
[2019-06-23 22:23] LABS: Absolute Lymphocytes (CBC) 1.9 K/uL (0.7-4.9); Basophils % 0.7 % (0-1.3); Hematocrit 43.9 % (39.6-49.0); Lymphocytes % 23.8 % (15.3-44.8); MPV 7.8 fL (7.6-11.3); RBC Red Blood Cell Count 4.68 M/uL (4.33-5.43)
[2019-06-23 22:41] LABS: Bilirubin Total 0.2 mg/dL (0.2-1.0); Potassium 3.9 mmol/L (3.5-5.1); Protein, Total 6.6 g/dL (6.4-8.2)
--- NOTE | 2019-06-23 22:55 | EDPHYS ---
Physician Documentation [facility] Name: Moris Neal Age: 58 yrs Sex: Male : 1960 Arrival Date: 06/23/2019 Time: 21:18 Bed 25 Private MD: ED Physician Zack Becerra HPI: 06/23 21:55 This 58 yrs old Male presents to ER via Wheelchair with complaints of Back ps1 Pain. 21:55 Patient presenting with chronic back pain. Patient has been seen and evaluated ps1 previously for same complaint. He had plain film and CT stone protocol performed, no mention of emergent condition in imaging. Patient states that his complaints are atruamatic, no mention of fever, not immunocompromised, no hx of IVDA. No urinary complaints, urgency or incontinence. No saddle anesthesia or fecal incontinence. Not on chronic steroids. Hx of multiple back surgeries per patient 15 years ago. Hx of opioid dependence, stopped 3 years ago. Previously on oxycontin and xanax. States that he has been taking T3 and 1.5g Acetaminophen tid and 800mg Motrin. . Historical: - Allergies: 21:29 No Known Allergies; mg2 - Home Meds: 21:29 Depakote Oral [Active]; Seroquel Oral [Active]; mg2 - PMHx: 21:29 Depression; Hypertension; spontaneous fractures of vertebrae; mg2 - PSHx: 21:29 Cholecystectomy; hand sx; mg2 - Immunization history:: Flu vaccine is not up to date. - Social history:: Smoking status: Patient uses tobacco products, smokes one pack cigarettes per day. Patient uses alcohol, but reports only rare drinking. street drugs, Patient/guardian denies using street drugs, IV drugs. - Ebola Screening: : No symptoms or risks identified at this time. ROS: 21:55 Constitutional: Negative for fever, chills, and weight loss, Eyes: Negative for injury, ps1 pain, redness, and discharge, Cardiovascular: Negative for chest pain, palpitations, and edema, Respiratory: Negative for shortness of breath, cough, wheezing, and pleuritic chest pain, Abdomen/GI: Negative for abdominal pain, nausea, vomiting, diarrhea, and constipation, MS/Extremity: Negative for injury and deformity, Skin: Negative for injury, rash, and discoloration, Neuro: Negative for headache, weakness, numbness, tingling, and seizure. 21:55 Back: Positive for pain with movement. Exam: 21:55 Constitutional: This is a well developed, well nourished patient who is awake, alert, ps1 and in no acute distress. Head/Face: Normocephalic, atraumatic. Eyes: Pupils equal round and reactive to light, extra-ocular motions intact. Lids and lashes normal. Conjunctiva and sclera are non-icteric and not injected. ENT: Nares patent. No nasal discharge, no septal abnormalities noted. Tympanic membranes are normal and external auditory canals are clear. Oropharynx with no redness, swelling, or masses, exudates, or evidence of obstruction, uvula midline. Mucous membranes moist. Cardiovascular: Regular rate and rhythm. No gallops, murmurs, or rubs. Normal PMI, no JVD. No pulse deficits. Respiratory: Lungs have equal breath sounds bilaterally, clear to auscultation and percussion. No rales, rhonchi or wheezes noted. No increased work of breathing, no retractions or nasal flaring. Abdomen/GI: Soft, non-tender, with normal bowel sounds. No distension or tympany. No guarding or rebound. No evidence of tenderness throughout. Skin: Warm, dry with normal turgor. Normal color with no rashes, no lesions, and no evidence of cellulitis. MS/ Extremity: Pulses equal, no cyanosis. Neurovascular intact. Full, normal range of motion. Neuro: Awake and alert, GCS 15, oriented to person, place, time, and situation. Cranial nerves II-XII grossly intact. Sensory grossly intact. Psych: Awake, alert, with orientation to person, place and time. Behavior, mood, and affect are within normal limits. 21:55 Back: pain, that is mild, ROM is painful. Vital Signs: 21:25 BP 107 / 74; Pulse 105; Resp 18; Temp 98.8; Pulse Ox 94% on R/A; Weight 117.93 kg; mg2 Height 5 ft. 10 in. (177.80 cm); Pain 3/10; 21:25 Body Mass Index 37.31 (117.93 kg, 177.80 cm) mg2 MDM: 22:01 Patient medically screened. ps1 22:48 Data reviewed: vital signs, nurses notes, old medical records, previous CT evaluated. ps1 No obvious bony entrance into canal or stenosis concerning for central cord syndrome. Previous radiology read did not comment on spine. lab test result(s), and as a result, I will discharge patient. Counseling: I had a detailed discussion with the patient and/or guardian regarding: the historical points, exam findings, and any diagnostic results supporting the discharge/admit diagnosis, radiology results, the need for outpatient follow up, PCP and pain management for further diagnostic testing. Patient needs OP MRI for further evaluation. Labs normal and history not concerning for central cord syndrome. . 22:52 ED course: Patient liver enzymes not consistent with tylenol OD. No RUQ pain. Will have ps1 patient stop taking tylenol while taking T3. . 06/23 22:01 Order name: CBC with Diff ps1 06/23 22:01 Order name: CMP; Complete Time: 22:46 ps1 06/23 23:38 Order name: CBC Smear Scan EDMS Administered Medications: 23:23 Drug: TORadol - Ketorolac 15 mg Route: IM; Site: right deltoid; tr5 23:29 Follow up: Response: Medication administered at discharge. tr5 Disposition: 06/23/19 22:55 Discharged to Home. Impression: Low back pain. - Condition is Stable. - Discharge Instructions: Back Pain, Adult. - Prescriptions for tramadol 200 mg Oral capsule,ER biphase 24 hr 25- 75 - take 1 capsule by ORAL route once daily; 10 capsule. Medrol (Robbie) 4 mg Oral Tablets, Dose Pack - take 1 tablet by ORAL route as directed - follow package instructions; 1 packet. - Medication Reconciliation Form, Thank You Letter, Antibiotic Education, Prescription Opioid Use form. - Follow up: Harish Peterson MD; When: 48 Hours; Reason: Recheck today's complaints, Continuance of care, Re-evaluation by your physician. Follow up: Emergency Department; When: As needed; Reason: Fever > 102 F, Worsening of condition. - Problem is chronic. - Symptoms are unchanged. Signatures: Dispatcher [employer] EDMS Zack Becerra MD MD ps1 Chirag Sanches RN RN mg2 Alex Salinas RN RN tr5 Corrections: (The following items were deleted from the chart) 22:00 21:55 Patient presenting with chronic back pain. Patient has been seen and evaluated ps1 previously for same complaint. He had plain film and CT stone protocol performed, no mention of emergent condition in imaging. Patient states that his complaints are atruamatic, no mention of fever, not immunocompromised, no hx of IVDA. Not on chronic steroids. Hx of multiple back surgeries per patient 15 years ago. Hx of opioid dependence, stopped 3 years ago. Previously on oxycontin and xanax. . ps1 22:01 21:55 Patient presenting with chronic back pain. Patient has been seen and evaluated ps1 previously for same complaint. He had plain film and CT stone protocol performed, no mention of emergent condition in imaging. Patient states that his complaints are atruamatic, no mention of fever, not immunocompromised, no hx of IVDA. No urinary complaints, urgency or incontinence. No saddle anesthesia or fecal incontinence. Not on chronic steroids. Hx of multiple back surgeries per patient 15 years ago. Hx of opioid dependence, stopped 3 years ago. Previously on oxycontin and xanax. . ps1 23:48 22:55 06/23/2019 22:55 Discharged to Home. Impression: Low back pain. Condition is tr5 Stable. Forms are Medication Reconciliation Form, Thank You Letter, Antibiotic Education, Prescription Opioid Use. Follow up: Harish Peterson; When: 48 Hours; Reason: Recheck today's complaints, Continuance of care, Re-evaluation by your physician. Follow up: Emergency Department; When: As needed; Reason: Fever > 102 F, Worsening of condition. Problem is chronic. Symptoms are unchanged. ps1
--- NOTE | 2019-06-23 22:55 | ER ---
Nurse's Notes [facility] Name: Moris Neal Age: 58 yrs Sex: Male : 1960 Arrival Date: 06/23/2019 Time: 21:18 Bed 25 Private MD: Diagnosis: Low back pain Presentation: 06/23 21:23 Presenting complaint: Patient states: i had vertebral fusion done last 2002 and it mg2 failed after a year. i have chronic back pain since then. Transition of care: patient was not received from another setting of care. Onset of symptoms was June 23, 2019. Risk Assessment: Do you want to hurt yourself or someone else? Patient reports no desire to harm self or others. Initial Sepsis Screen: Does the patient meet any 2 criteria? No. Patient's initial sepsis screen is negative. Does the patient have a suspected source of infection? No. Patient's initial sepsis screen is negative. Care prior to arrival: None. 21:23 Method Of Arrival: Wheelchair mg2 21:23 Acuity: BIN 4 mg2 Historical: - Allergies: 21:29 No Known Allergies; mg2 - Home Meds: 21:29 Depakote Oral [Active]; Seroquel Oral [Active]; mg2 - PMHx: 21:29 Depression; Hypertension; spontaneous fractures of vertebrae; mg2 - PSHx: 21:29 Cholecystectomy; hand sx; mg2 - Immunization history:: Flu vaccine is not up to date. - Social history:: Smoking status: Patient uses tobacco products, smokes one pack cigarettes per day. Patient uses alcohol, but reports only rare drinking. street drugs, Patient/guardian denies using street drugs, IV drugs. - Ebola Screening: : No symptoms or risks identified at this time. Screenin:57 Abuse screen: Denies threats or abuse. Nutritional screening: No deficits noted. tr5 Tuberculosis screening: No symptoms or risk factors identified. Fall Risk None identified. Assessment: 22:57 General: Appears uncomfortable, Behavior is calm, cooperative, appropriate for age. tr5 Pain: Complains of pain in back Pain currently is 8 out of 10 on a pain scale. Quality of pain is described as aching, Pain began years ago. Is chronic. Neuro: Level of Consciousness is awake, alert, obeys commands, Oriented to person, place, time, Freight Broker Agent are equal bilaterally Moves all extremities. Cardiovascular: Heart tones present Capillary refill < 3 seconds. Respiratory: Airway is patent Respiratory effort is even, unlabored, Respiratory pattern is regular, symmetrical. GI: No signs and/or symptoms were reported involving the gastrointestinal system. : No signs and/or symptoms were reported regarding the genitourinary system. EENT: No signs and/or symptoms were reported regarding the EENT system. Derm: No signs and/or symptoms reported regarding the dermatologic system. Musculoskeletal: No signs and/or symptoms reported regarding the musculoskeletal system. Vital Signs: 21:25 BP 107 / 74; Pulse 105; Resp 18; Temp 98.8; Pulse Ox 94% on R/A; Weight 117.93 kg; mg2 Height 5 ft. 10 in. (177.80 cm); Pain 3/10; 21:25 Body Mass Index 37.31 (117.93 kg, 177.80 cm) mg2 ED Course: 21:18 Patient arrived in ED. cf2 21:22 Zack Becerra MD is Attending Physician. ps1 21:25 Triage completed. mg2 21:29 Arm band placed on. mg2 21:50 Alex Salinas, [place] is Primary Nurse. tr5 22:19 Initial lab(s) drawn, by me, sent to lab. jp3 22:20 CMP Sent. jp3 22:20 CBC with Diff Sent. jp3 22:54 Harish Peterson MD is Referral Physician. ps1 22:57 Call light in reach. Side rails up X 1. tr5 23:47 No provider procedures requiring assistance completed. Patient did not have IV access tr5 during this emergency room visit. Administered Medications: 23:23 Drug: TORadol - Ketorolac 15 mg Route: IM; Site: right deltoid; tr5 23:29 Follow up: Response: Medication administered at discharge. tr5 Outcome: 22:55 Discharge ordered by MD. ps1 23:47 Discharged to home ambulatory. tr5 23:47 Condition: stable 23:47 Discharge instructions given to patient, Instructed on discharge instructions, follow up and referral plans. medication usage, Demonstrated understanding of instructions, follow-up care, medications, Prescriptions given X 2. 23:48 Patient left the ED. tr5 Signatures: Zack Becerra MD MD ps1 Chirag Sanches RN RN mg2 Ludin Soto jp3 Alex Salinas RN RN tr5 Nelson Jung cf2
[2019-06-23] MEDS ORDERED: KETOROLAC 30 MG/ML INJ ONE (23:19)
[2019-06-23 23:38] LABS: Blood Morphology Comment NOT SEEN (NOT SEEN); Platelet Estimate ADEQ; Urine White Blood Cell Casts OK
[2019-06-24 00:33] VITALS: BP 107/74; TEMP 98.8; O2SAT 94
== END 2019-06-23 23:48 | disposition home or self-care (01) ==
LOC: ER 21:15
DX: M54.5 Low back pain (principal); I10 Essential (primary) hypertension; F32.9 Major depressive disorder, single episode, unspecified; F17.210 Nicotine dependence, cigarettes, uncomplicated
CPT/HCPCS: 36415; 80053; 85025; 96372; 99283